=== PATIENT | female | born 1990 ===

== ENCOUNTER 2022-12-05 07:47 | Emergency (ER) | payer OTHER, SELFPAY ==
[2022-12-05 07:55] VITALS: BP 114/72; PULSE 17; RESP 105; TEMP 36.4; O2SAT 96; BMI 24.5
[2022-12-05 08:27] LABS: COVID-19 Test Positive (Negative); IDNOW Serial# BCCEAD1C
[2022-12-05 08:40] LABS: IDNOW Serial# 9DB6401D; Influenza A Negative (Negative); Influenza B2 Negative (Negative)
--- NOTE | 2022-12-05 08:44 | ED_ITS ---
HPI - General Adult General Chief complaint: General Medical Stated complaint: body aches Time Seen by Provider: 12/05/22 08:30 Source: patient and family Mode of arrival: ambulatory Limitations: no limitations History of Present Illness HPI narrative: A 31-year-old female came in for evaluation of generalized body ache, runny nose, subjective fever, sneezing, coughing, is sick with similar symptoms. Patient has no difficulty breathing , or shortness of breath. Review of Systems Review of Systems: All other systems are reviewed and are negative Constitutional: Reports as per HPI and Reports no additional constitutional complaints Eyes: Reports as per HPI and Reports no additional eye complaints Reports system reviewed and no additional complaints, except as documented Cardiovascular: Reports as per HPI and Reports no additional cardiovascular complaints Respiratory: Reports as per HPI and Reports no additional respiratory complaints Gastrointestinal: Reports as per HPI and Reports no additional gastrointestinal complaints Genitourinary: Reports no additional female genitourinary complaints Musculoskeletal: Reports no additional musculoskeletal complaints Skin/Breast: Reports system reviewed and no additional complaints, except as docu Psychiatric: Reports no additional psychiatric complaints Endocrine: Reports no additional endocrine complaints Hematologic/Lymphatic: Reports no additional hematologic/lymphatic complaints Allergic/Immunologic: Reports no additional allergic/immunologic complaints Reports system reviewed and no additional complaints, except as documented and Reports Abnormal speech present [facility] Social History Social History Advance Directives: No Advance Directives Information Provided: Yes Physical Exam ED Vital Signs: Vital Signs - 24 hr 12/05/22 07:55 Temperature 97.5 F Pulse Rate 17 L Respiratory Rate 105 H Blood Pressure 114/72 Pulse Oximetry 96 Oxygen Delivery Method Room Air BMI result Body Mass Index 24.5 Vital signs have been reviewed and appear to be correct. Blood pressure elevated. Heart rate Elevated. Respiratory rate normal. Temperature normal. Oxygen saturation normal. Appearance: Alert. Oriented X3. No acute distress. Head: Normal external exam. Normocephalic. Atraumatic. No Walker signs noted. No raccoon eyes noted Eyes: PERRLA. EOMI. Conjunctiva and sclera normal. Eyelids normal. ENT: TM's Normal. Pharynx normal. Uvula midline. Moist mucous membranes. No trismus noted. No drooling noted. No muffled voice noted. Neck: Normal inspection. Neck supple. FROM. No adenopathy. Thyroid Normal. No me ningeal signs. No neck mass noted. CVS: Normal heart rate and rhythm. Heart sound normal. No murmurs noted. Pulses normal throughout. Respiratory: No respiratory distress. Painless inspiration. Breath sounds normal. No wheezes/rales/rhonchi noted. Chest nontender. No accessory muscle usage noted or decreased air movement noted. Abdomen: Soft and nontender. Bowel sounds normal in all 4 quadrants. No distention noted. No organomegaly noted. No visible injury noted. Back: No CVA tenderness. Full range of motion noted. Skin: Skin warm and dry. Normal skin color. Normal skin turgor. No ra shes/lesions/lacerations noted. Extremities: No lower extremity edema. Extremities exhibit normal range of motion. Extremities nontender. Neuro: Oriented X 3. Cranial nerve exam: II-XII are grossly intact No motor deficit. No sensory deficit. Reflexes normal. Medical Decision Making Differential Diagnosis Differential Diagnoses: The differential diagnosis associated with the presentation includes ( COVID-19, influenza a, influenza B.) Admission/Observation Consideration of admission/observation: Escalation of care including admission/observation considered Lab Data MDM Lab Attestation statement: I reviewed the patient's lab results. Labs: Lab Results 12/05/22 Range/Units 08:07 COVID-19 (GALI) Positive A (Negative) COVID-19 Clin Com See Note Influenza Type A (JC) Negative (Negative) Influenza Type B (JC) Negative (Negative) Influenza A & B Note See Note Discharge Plan Discharge Clinical Impression: COVID-19 virus infection Patient Disposition: Home, Self-Care Instructions: COVID-19 (Coronavirus Disease 2019) (ED) Additional Instructions: frequent hand washing, keep social distancing, wear a face mask at all times, self-quarantine for 1 week. Stand Alone Forms: Work/School Release
== END 2022-12-05 08:52 | disposition home or self-care (01) ==
PROVIDERS: Emergency Provider Emergency Medicine
DX: U07.1 COVID-19 (principal)
CPT/HCPCS: 87502; 87635; 99283; 99284

== ENCOUNTER 2024-01-19 14:39 | Emergency (ER) | payer OTHER, SELFPAY ==
[2024-01-19 14:53] VITALS: BP 119/73; PULSE 79; RESP 18; TEMP 36.5; O2SAT 100; BMI 26.5
[2024-01-19 15:47] LABS: MANUAL DIFF FLAG NO
[2024-01-19 15:48] LABS: Basophils Percent Auto 0.5 % (0-2); Eosinophils Absolute Auto 0.1 X10*3/uL (0.0-0.4); Eosinophils Percent Auto 0.6 % (0-4); Hemoglobin 13.5 g/dl (12.0-16.0); Imm Gran Abs Auto 0.01 X10*3/uL (0.00-0.03); Imm Gran Pct Auto 0.1 % (0.0-0.4); Lymphocytes Absolute Auto 2.1 X10*3/uL (1.2-4.9); Mean Corpuscular HGB Conc 33.8 g/dl (31.0-35.0); Mean Corpuscular Hemoglobin 28.1 pg (27.0-33.0); Mean Corpuscular Volume 83.2 fL (80.0-98.0); Mean Platelet Volume 10.5 fL (9.4-12.3); Monocytes Absolute Auto 0.5 X10*3/uL (0.1-1.2); Monocytes Percent Auto 5.7 % (2-11); Neutrophils Absolute Auto 5.7 x10*3/uL (2.0-8.3); Neutrophils Percent Auto 68.1 % (45-73); Platelet Count 289 X10*3/uL (160-400); Red Blood Count 4.81 X10*6/uL (4.20-5.50); Red Cell Distribution Width 12.8 % (11.0-16.0); White Blood Count 8.4 X10*3/uL (4.8-10.8)
[2024-01-19 15:50] LABS: Appearance Urine Clear; Color Urine Yellow; Glucose Urine UA Negative (Negative); Leukocyte Esterase Urine Negative (Negative); Nitrite Urine Negative (Negative); Specific Gravity - Urine >= 1.030 (1.005-1.025); Urine Blood Negative (Negative); Urine Ketones 80 mg/dL (Negative); Urine Protein Negative (Neg-Trace)
[2024-01-19 15:51] LABS: UPreg QC Valid YES; Urine Pregnancy NEGATIVE (NEGATIVE)
[2024-01-19 16:01] LABS: Alanine Aminotransferase 13 U/L (0-31); Albumin Level 3.8 g/dL (3.5-5.0); Alkaline Phosphatase 101 U/L (39-117); Anion Gap 10 (12-20); Aspartate Amino Transferase 24 U/L (5-31); Bilirubin Total 0.3 mg/dL (0.0-1.0); Blood Urea Nitrogen 12 mg/dL (9-16); Calcium 8.9 mg/dL (8.4-10.2); Carbon Dioxide 25 mmol/L (22-29); Chloride 109 mmol/L (96-108); Creatinine Clr Calc Pharmacy 85.9; Estimated Glomerular Filt Rate > 60; Glucose Random 122 mg/dL (60-115); Potassium 3.7 mmol/L (3.3-5.1); Sodium 140 mmol/L (135-145); Total Protein 6.7 g/dL (6.5-8.0)
--- NOTE | 2024-01-19 17:43 | ED.GENADULT ---
HPI - General Adult General Chief complaint: General Medical Stated complaint: heache, abd pain, dizziness Time Seen by Provider: 01/19/24 17:43 History of Present Illness ED Provider: Bridget SOLANO narrative: The patient is a 33-year-old female who is generally in good health. She has had a tubal ligation in the past. She presents with a headache that started about 3 days ago. It was gradual in onset. The headache is associated with a sense of room spinning dizziness. She also has lower abdominal pain. She says that if she eats she develops nausea. She has had no vomiting. She says she does not have a history of migraine headaches. No fever, sweats, chills. No neck stiffness. No sore throat. No photophobia. Related Data Allergies Allergy/AdvReac Type Severity Reaction Status Date / Time No Known Allergies Allergy Verified 01/19/24 14:56 Review of Systems Review of Systems: Yes all other systems are reviewed and are negative [facility] Social History Social History Advance Directives: No Advance Directives Information Provided: No Do you have a plan to hurt others: No Plan Physical Exam ED Vital Signs: Vital Signs - 24 hr 01/19/24 14:53 01/19/24 19:22 01/19/24 20:38 Temperature 97.7 F 98.0 F 98.0 F Pulse Rate 79 100 100 Respiratory Rate 18 12 12 Blood Pressure 119/73 122/54 L 122/54 L Pulse Oximetry 100 98 98 Oxygen Delivery Method Room Air Room Air Room Air BMI result Body Mass Index 26.5 Const Other: The patient is awake, alert, pleasant, cooperative. She does not appear in acute distress. HENMT Other: Face is symmetrical. Mucous membranes are moist. The posterior pharynx is normal. Tongue is midline. Eyes Other: Pupils are round equal and reactive, extraocular movements are intact, no nystagmus, Neck Other: No cervical adenopathy. Resp Effort & Inspection: normal respiratory effort Auscultation: clear to auscultation bilaterally Cardio Rate: regular rate Rhythm: regular rhythm Heart sounds: S1 normal heart sound present and S2 normal heart sound present GI Other: Abdomen is soft and nontender Skin Other: Skin is dry and unremarkable Neuro Other: The patient is awake and alert with a normal mental status. She does not seem altered or in distress at all. Neck is supple. Eye movements are normal. Pupils are normal. Face is symmetrical. Speech is clear. She moves her extremities normally with normal strength and coordination. She seems neurologically intact. Extrem Other: No peripheral edema Medications Administered Discontinued Medications Generic Name Dose Route Start Last Admin Trade Name Mulugeta PRN Reason Stop Dose Admin Acetaminophen 975 mg 01/19/24 19:27 01/19/24 19:42 Acetaminophen 325 Mg Tablet PO 01/19/24 19:28 975 mg ONCE ONE Administration Diphenhydramine HCl 25 mg 01/19/24 17:48 01/19/24 18:37 Diphenhydramine Hcl 50 Mg/Ml Vial IVPUSH 01/19/24 17:49 25 mg ONCE ONE Administration Sodium Chloride 1,000 mls @ 999 mls/hr 01/19/24 18:00 01/19/24 19:39 Ns IV 01/19/24 19:00 Infused .Q1H1M NBA Infusion Ketorolac Tromethamine 10 mg 01/19/24 17:48 01/19/24 18:37 Ketorolac Tromethamine 15 Mg/Ml Vial IVPUSH 01/19/24 17:49 10 mg ONCE ONE Administration Meclizine HCl 25 mg 01/19/24 19:27 01/19/24 19:42 Meclizine Hcl 25 Mg Tablet PO 01/19/24 19:28 25 mg ONCE ONE Administration Metoclopramide HCl 10 mg 01/19/24 17:48 01/19/24 18:37 Metoclopramide Hcl 10 Mg/2 Ml Vial IVPUSH 01/19/24 17:49 10 mg ONCE ONE Administration Medical Decision Making Medical Decision Making [facility] Narrative: The patient is a very pleasant 33-year-old female presents with a chief complaint of headache and dizziness. She has a secondary complaint of some lower abdominal pain. Her abdominal exam seems extremely benign. Her neurological exam also seems extremely benign. She does not describe a thunderclap headache and she does not seem toxic in any way. Her CBC is unremarkable with a normal white count, normal differential. Normal hemoglobin. Based on her extremely benign abdominal exam I did not think she needed abdominal imaging. Based on her benign physical exam I also did not think she required any imaging for her headache or dizziness. She was treated with IV fluids, metoclopramide, ketorolac, and diphenhydramine. She seemed to feel significantly better. Somewhat strangely she reported that she had some vaginal bleeding while in the emergency department. Her test is negative. Her abdomen remained benign. 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 She apparently gets annual Pap smears. Given her benign exam and benign labs I did not feel there was an indication for a pelvic exam, particularly as she did not describe a significant amount of blood, only slight vaginal bleeding. I think she may be discharged to follow up with her regular doctor and also with her wire fence erector. She should return if worse. Lab Data 01/19/24 15:41 01/19/24 15:41 Labs: Lab Results 01/19/24 01/19/24 Range/Units 15:41 15:43 WBC 8.4 (4.8-10.8) X10*3/uL RBC 4.81 (4.20-5.50) X10*6/uL Hgb 13.5 (12.0-16.0) g/dl Hct 40.0 (37.0-47.0) % MCV 83.2 (80.0-98.0) fL MCH 28.1 (27.0-33.0) pg MCHC 33.8 (31.0-35.0) g/dl RDW 12.8 (11.0-16.0) % Plt Count 289 (160-400) X10*3/uL MPV 10.5 (9.4-12.3) fL Immature Gran % (Auto) 0.1 (0.0-0.4) % Neut % (Auto) 68.1 (45-73) % Lymph % (Auto) 25.0 (20-40) % [place] % (Auto) 5.7 (2-11) % Eos % (Auto) 0.6 (0-4) % Baso % (Auto) 0.5 (0-2) % Lymph # (Auto) 2.1 (1.2-4.9) X10*3/uL [place] # (Auto) 0.5 (0.1-1.2) X10*3/uL Eos # (Auto) 0.1 (0.0-0.4) X10*3/uL Baso # (Auto) 0.0 (0.0-0.2) X10*3/uL Abs Immat Gran (auto) 0.01 (0.00-0.03) X10*3/uL Absolute Neuts (auto) 5.7 (2.0-8.3) x10*3/uL Absolute Nucleated RBC 0.000 (0.0-0.012) X10*3/uL Nucleated RBC % (auto) 0.0 (0.0-0.2) /100WBC Sodium 140 (135-145) mmol/L Potassium 3.7 (3.3-5.1) mmol/L Chloride 109 H (96-108) mmol/L Carbon Dioxide 25 (22-29) mmol/L Anion Gap 10 L (12-20) BUN 12 (9-16) mg/dL Creatinine 0.70 (0.5-1.4) mg/dL Estim Creat Clear Calc 85.9 Estimated GFR > 60 Random Glucose 122 H (60-115) mg/dL Calcium 8.9 (8.4-10.2) mg/dL Total Bilirubin 0.3 (0.0-1.0) mg/dL AST 24 (5-31) U/L ALT 13 (0-31) U/L Alkaline Phosphatase 101 (39-117) U/L Total Protein 6.7 (6.5-8.0) g/dL Albumin 3.8 (3.5-5.0) g/dL Urine Color Yellow Urine Appearance Clear Urine pH 6.0 (5.0-9.0) Ur Specific [place] >= 1.030 H (1.005-1.025) Urine Protein Negative (Neg-Trace) mg/dL Urine Glucose (UA) Negative (Negative) mg/dL Urine Ketones 80 (Negative) mg/dL Urine Blood Negative (Negative) Urine Nitrite Negative (Negative) Ur Leukocyte Esterase Negative (Negative) Urine Test NEGATIVE (NEGATIVE) Discharge Plan Discharge Clinical Impression: Headache, Dizziness, Lower abdominal pain Patient Disposition: Home, Self-Care Additional Instructions: Please rest and take it easy tonight. Your blood testing all seems quite reassuring. Please plan on contacting your wire fence erector at [facility] on Monday if you are having ongoing bleeding. If your symptoms get significantly worse at any time please return to the emergency department. Referrals: [facility] [Provider Group] (Headache, dizziness) Stand Alone Forms: Work/School Release Interventions: ED Discharge Assessment Last Done: 01/19/24 20:38 Discharge Date/Time: 01/19/24 20:38 Print Language: Venezuelan
[2024-01-19] MEDS: Ketorolac Tromethamine 15 MG/ML VIAL 10 MG IVPUSH (18:37)
[2024-01-19] MEDS: diphenhydrAMINE HCL 50 MG/ML VIAL 25 MG IVPUSH (18:37)
[2024-01-19] MEDS: Metoclopramide HCl 10 MG/2 ML VIAL IVPUSH (18:37)
[2024-01-19] MEDS: 0.9 % Sodium Chloride 1,000 ML 999 ML IV (18:38)
[2024-01-19 19:22] VITALS: BP 122/54; PULSE 100; RESP 12; TEMP 36.7; O2SAT 98
[2024-01-19] MEDS: Acetaminophen 325 MG TABLET 975 MG PO (19:42)
[2024-01-19] MEDS: Meclizine HCl 25 MG TABLET PO (19:42)
[2024-01-19 20:38] VITALS: BP 122/54; PULSE 100; RESP 12; TEMP 36.7; O2SAT 98
== END 2024-01-19 20:38 | disposition home or self-care (01) ==
PROVIDERS: Emergency Provider Emergency Medicine
DX: R51.9 Headache, unspecified (principal); R42 Dizziness and giddiness; R10.30 Lower abdominal pain, unspecified
CPT/HCPCS: 36415; 80053; 81003; 81025; 85025; 96361; 96374; 96375; 99284; J1200; J1885; J2765

== ENCOUNTER 2024-02-01 13:37 | Emergency (ER) | payer OTHER, SELFPAY ==
--- NOTE | ~2024-02-01 | CT_ITS ---
EXAMINATION: CT HEAD WITHOUT CONTRAST CLINICAL INFORMATION: Headache COMPARISON: None available. TECHNIQUE: Contiguous axial imaging was performed from the skull base to vertex without intravenous administration of contrast. This CT examination was performed using dose optimization techniques as appropriate, variously including the following: *Automated exposure control *Adjustment of mA and/or kV according to patient size (this includes techniques or standardized protocols for targeted exams where dose is matched to indication/reason for exam; i.e. extremities or head) *Use of iterative reconstruction technique DLP: 534 mGy-cm FINDINGS: There is no evidence of acute intracranial hemorrhage or edematous large vessel territorial infarction. No abnormal mass effect or midline shift is seen. Benítez to white matter differentiation is well preserved. No abnormal extra-axial fluid collections are identified. The ventricles are normal in size. Small densities in bilateral basal ganglia suggesting basal nuclei suggesting mineralization.. The cerebellar tonsils appear appropriately positioned. No acute calvarial fracture.. Paranasal sinuses and mastoid air cells are well-aerated. CT/CT head/brain wo IV con IMPRESSION: No CT evidence of acute intracranial hemorrhage or edematous territorial infarction.. Small densities in bilateral basal nuclei suggesting mineralization.. Electronically signed by: Lanre Lugo MD 02/01/2024 05:59 PM EST
[2024-02-01 13:41] VITALS: BP 123/79; PULSE 116; RESP 20; TEMP 36.4; O2SAT 99; BMI 26.0
--- NOTE | 2024-02-01 13:47 | ED_ITS ---
HPI - General Adult General Chief complaint: Headache Stated complaint: Dizziness, headache Time Seen by Provider: 02/01/24 16:06 Source: patient Limitations: no limitations History of Present Illness ED Provider: Tamara Wilson PA-C HPI narrative: 33-year-old female with hx of asthma, vertigo, presents with a headache x1 day. Associated nausea, dizziness, patient feels as if she is ?spinning in circles?. Pain over left frontal region, is retro-orbital. Has been constant since yesterday, patient has not tried any OTC pain medications to alleviate her discomfort. Denies phonophobia, photophobia or visual changes. No head trauma, the patient does not use blood thinners. Patient denies recent illness or fevers, no neck pain. No preceding heavy lifting injury. Related Data Allergies Allergy/AdvReac Type Severity Reaction Status Date / Time No Known Allergies Allergy Verified 02/01/24 13:46 Review of Systems 2 Review of Systems: Yes all other systems are reviewed and are negative Constitutional: Constitutional: Denies fatigue, Denies fever(s) and Reports headache(s) Eyes: Eyes: Denies change in vision and Denies loss of vision ENT: Reports headache(s) and Denies neck pain Cardiovascular: Cardiovascular: Denies chest pain and Denies dyspnea Respiratory: Respiratory: Denies cough and Denies dyspnea Gastrointestinal: Gastrointestinal: Denies abdominal pain, Reports nausea and Reports vomiting Musculoskeletal: Musculoskeletal: Denies back pain, Denies myalgias, Denies neck pain, Denies numbness and Denies tingling Neurologic: Reports headache(s), Denies focal weakness, Denies loss of vision, Denies numbness and Denies tingling Endocrine: Endocrine: Denies fatigue [facility] Past Medical History Attestation statement: The following information was validated with the patient. Social History Social History Smoked in Last 30 Days: No Use of substances other than those prescribed or required for medical reasons: No Advance Directives: No Advance Directives Information Provided: Yes Do you have a plan to hurt others: No Plan Patient : No Physical Exam ED Vital Signs: Vital Signs - 24 hr 02/01/24 13:41 02/01/24 16:05 Temperature 97.5 F 97.5 F Pulse Rate 116 H 116 H Respiratory Rate 20 20 Blood Pressure 123/79 123/79 Pulse Oximetry 99 99 Oxygen Delivery Method Room Air Room Air BMI result Body Mass Index 26.0 Const Other: Alert, well-appearing Orientation/consciousness: patient oriented x3 Eyes Other: No nystagmus on exam Neck Other: Soft, supple, full range of motion Resp Other: Nonlabored respiration Cardio Other: No peripheral perfusion Skin Other: Warm dry no rash Neuro General: patient oriented x3, no focal motor deficits and CN's II-XI intact bilaterally Extrem Other: Patient is also able to move and turn her head without causing extreme dizziness or nausea Psych Other: Calm cooperative Course Course Course Narrative: RME: 33 yold female presents to the ED for headache, dizziness, nusaea, and vomitting. was told she has migaines. patient denies any chest pain or shortness of breath. . Reevaluation(s) Reevaluation #1: headache resolved, patient eager for discharge, CT negative. Time: 19:44 Medications Administered Discontinued Medications Generic Name Dose Route Start Last Admin Trade Name Kamarq PRN Reason Stop Dose Admin Diphenhydramine HCl 25 mg 02/01/24 16:11 02/01/24 16:38 Diphenhydramine Hcl 50 Mg/Ml Vial IVPUSH 02/01/24 16:12 25 mg ONCE ONE Administration Sodium Chloride 1,000 mls @ 999 mls/hr 02/01/24 16:15 02/01/24 17:39 Ns IV 02/01/24 17:15 Infused .Q1H1M NBA Infusion Acetaminophen 1,000 mg in 100 mls @ 400 mls/hr 02/01/24 16:11 02/01/24 16:57 Ofirmev IV 02/01/24 16:25 Infused ONCE ONE Infusion Ketorolac Tromethamine 15 mg 02/01/24 16:11 02/01/24 16:38 Ketorolac Tromethamine 15 Mg/Ml Vial IVPUSH 02/01/24 16:12 15 mg ONCE ONE Administration Ondansetron HCl 4 mg 02/01/24 13:46 02/01/24 13:49 Ondansetron Odt 4 Mg Tab.Rapdis TRANSLINGU 02/01/24 13:47 4 mg ONCE ONE Administration Prochlorperazine Edisylate 10 mg 02/01/24 16:11 02/01/24 16:38 Prochlorperazine Edisylate 10 Mg/2 Ml Vial IVPUSH 02/01/24 16:12 10 mg ONCE ONE Administration Medical Decision Making Medical Decision Making [facility] Narrative: 33-year-old female with hx of asthma, vertigo, presents with a headache x1 day. Associated nausea, dizziness, patient feels as if she is ?spinning in circles?. Pain over left frontal region, is retro-orbital. Has been constant since yesterday, patient has not tried any OTC pain medications to alleviate her discomfort. Denies phonophobia, photophobia or visual changes. No head trauma, the patient does not use blood thinners. Patient denies recent illness or fevers, no neck pain. No preceding heavy lifting injury. Problem: Vertigo History: Per patient I have considered the following differential diagnoses: Viral syndrome, meningitis, VAD, migraine, intracranial hemorrhage, vertigo Plan: The patient had some features of a migraine, we will give migraine cocktail. She is neurologically intact, I have no suspicion for intracranial hemorrhage, however CT scan was ordered from triage. Thought about meningitis, however she has not had recent illness, she is afebrile, and no meningeal signs on exam. Considered VAD, however she is neurologically intact, and there was no preceding heavy lifting injury. The patient's symptoms are also not vertiginous in nature, she is moving her head and changing positions without having profound dizziness or nausea, and there was no nystagmus on exam. I have independently reviewed the following tests: Labs: No leukocytosis, not anemic, not , viral panel negative CT brain: CT/CT head/brain wo IV con IMPRESSION: No CT evidence of acute intracranial hemorrhage or edematous territorial infarction.. Small densities in bilateral basal nuclei suggesting mineralization.. Electronically signed by: Lanre Lugo MD 02/01/2024 05:59 PM [facility] Lab Data 02/01/24 14:50 02/01/24 14:50 Labs: Lab Results 02/01/24 02/01/24 Range/Units 14:50 18:29 WBC 9.6 (4.8-10.8) X10*3/uL RBC 4.93 (4.20-5.50) X10*6/uL Hgb 13.7 (12.0-16.0) g/dl Hct 40.7 (37.0-47.0) % MCV 82.6 (80.0-98.0) fL MCH 27.8 (27.0-33.0) pg MCHC 33.7 (31.0-35.0) g/dl RDW 13.1 (11.0-16.0) % Plt Count 316 (160-400) X10*3/uL MPV 10.6 (9.4-12.3) fL Immature Gran % (Auto) 0.3 (0.0-0.4) % Neut % (Auto) 76.3 H (45-73) % Lymph % (Auto) 18.3 L (20-40) % [place] % (Auto) 4.4 (2-11) % Eos % (Auto) 0.3 (0-4) % Baso % (Auto) 0.4 (0-2) % Lymph # (Auto) 1.8 (1.2-4.9) X10*3/uL [place] # (Auto) 0.4 (0.1-1.2) X10*3/uL Eos # (Auto) 0.0 (0.0-0.4) X10*3/uL Baso # (Auto) 0.0 (0.0-0.2) X10*3/uL Abs Immat Gran (auto) 0.03 (0.00-0.03) X10*3/uL Absolute Neuts (auto) 7.4 (2.0-8.3) x10*3/uL Absolute Nucleated RBC 0.000 (0.0-0.012) X10*3/uL Nucleated RBC % (auto) 0.0 (0.0-0.2) /100WBC Sodium 138 (135-145) mmol/L Potassium 4.0 (3.3-5.1) mmol/L Chloride 109 H (96-108) mmol/L Carbon Dioxide 23 (22-29) mmol/L Anion Gap 10 L (12-20) BUN 12 (9-16) mg/dL Creatinine 0.68 (0.5-1.4) mg/dL Estim Creat Clear Calc 87.6 Estimated GFR > 60 Random Glucose 96 (60-115) mg/dL Calcium 9.1 (8.4-10.2) mg/dL Total Bilirubin 0.4 (0.0-1.0) mg/dL AST 25 (5-31) U/L ALT 17 (0-31) U/L Alkaline Phosphatase 111 (39-117) U/L Total Protein 7.1 (6.5-8.0) g/dL Albumin 3.9 (3.5-5.0) g/dL Beta HCG, Quant < 2 mIU/mL Urine Color Yellow Urine Appearance Clear Urine pH 6.5 (5.0-9.0) Ur Specific [place] 1.015 (1.005-1.025) Urine Protein Negative (Neg-Trace) mg/dL Urine Glucose (UA) Negative (Negative) mg/dL Urine Ketones 40 (Negative) mg/dL Urine Blood Negative (Negative) Urine Nitrite Negative (Negative) Ur Leukocyte Esterase Moderate (2+) H (Negative) Urine RBC 0-2 (0-2) /HPF Urine WBC 0-5 (0-5) /HPF Ur Squamous Epith Cells 3-5 (0-2) /HPF Urine Bacteria Trace (None Seen) Hyaline Casts 0-2 (0-2) /LPF Urine Test NEGATIVE (NEGATIVE) Influenza Type A (PCR) NEGATIVE (Negative) Influenza Type B (PCR) NEGATIVE (Negative) RSV RNA Qual (PCR) NEGATIVE (Negative) SARS-CoV-2 RNA (RT-PCR) NEGATIVE (Negative) S. pyogenes GrpA JC Negative (Negative) Discharge Plan Discharge Clinical Impression: Headache Patient Disposition: Home, Self-Care Instructions: Acute Headache (ED) Additional Instructions: you were treated for a migraine type headache. The CT scan of your brain was negative, all the labs were normal. If your headaches become frequent, you need to follow up with your primary care provider to discuss the need for a medication to help prevent headaches. Stand Alone Forms: Work/School Release Print Language: Danish
[2024-02-01] MEDS: Ondansetron ODT 4 MG TAB.RAPDIS TRANSLINGU (13:49)
[2024-02-01 14:57] LABS: MANUAL DIFF FLAG NO
[2024-02-01 15:03] LABS: Basophils Percent Auto 0.4 % (0-2); Eosinophils Percent Auto 0.3 % (0-4); Hematocrit 40.7 % (37.0-47.0); Hemoglobin 13.7 g/dl (12.0-16.0); Imm Gran Abs Auto 0.03 X10*3/uL (0.00-0.03); Imm Gran Pct Auto 0.3 % (0.0-0.4); Lymphocytes Absolute Auto 1.8 X10*3/uL (1.2-4.9); Lymphocytes Percent Auto 18.3 % (20-40); Mean Corpuscular HGB Conc 33.7 g/dl (31.0-35.0); Mean Corpuscular Hemoglobin 27.8 pg (27.0-33.0); Mean Corpuscular Volume 82.6 fL (80.0-98.0); Mean Platelet Volume 10.6 fL (9.4-12.3); Monocytes Absolute Auto 0.4 X10*3/uL (0.1-1.2); Monocytes Percent Auto 4.4 % (2-11); Neutrophils Absolute Auto 7.4 x10*3/uL (2.0-8.3); Neutrophils Percent Auto 76.3 % (45-73); Platelet Count 316 X10*3/uL (160-400); Red Blood Count 4.93 X10*6/uL (4.20-5.50); Red Cell Distribution Width 13.1 % (11.0-16.0); White Blood Count 9.6 X10*3/uL (4.8-10.8)
[2024-02-01 15:20] LABS: IDNOW Serial# 08D9AD1C; Strep A Nucleic Acid Negative (Negative)
[2024-02-01 15:21] LABS: Alanine Aminotransferase 17 U/L (0-31); Albumin Level 3.9 g/dL (3.5-5.0); Alkaline Phosphatase 111 U/L (39-117); Anion Gap 10 (12-20); Aspartate Amino Transferase 25 U/L (5-31); Bilirubin Total 0.4 mg/dL (0.0-1.0); Blood Urea Nitrogen 12 mg/dL (9-16); Calcium 9.1 mg/dL (8.4-10.2); Carbon Dioxide 23 mmol/L (22-29); Chloride 109 mmol/L (96-108); Creatinine Clr Calc Pharmacy 87.6; Estimated Glomerular Filt Rate > 60; Glucose Random 96 mg/dL (60-115); Sodium 138 mmol/L (135-145); Total Protein 7.1 g/dL (6.5-8.0)
[2024-02-01 15:23] LABS: HCG Quantitative < 2 mIU/mL
[2024-02-01 15:40] LABS: Influenza A PCR NEGATIVE (Negative); Influenza B PCR NEGATIVE (Negative); Resp Syncy Virus RNA Qual PCR NEGATIVE (Negative); SARS COV2 PCR INHOUSE NEGATIVE (Negative)
[2024-02-01 16:05] VITALS: BP 123/79; PULSE 116; RESP 20; TEMP 36.4; O2SAT 99
--- NOTE | 2024-02-01 16:21 | PC.NURSE ---
Pt comes to ED today with complaints of severe GUIDO x3 weeks gardually getting worse. Pt reports 10/10 pain to L side of head with dizziness, unsteady gait, and feels like the room is spinning. (+) n/v with diarrhea x1 today. A&Ox3, VSS, afebrile. Skin is warm and dry Breaths and speech are even and unlabored.
[2024-02-01] MEDS: 0.9 % Sodium Chloride 1,000 ML 999 ML IV (16:38)
[2024-02-01] MEDS: Prochlorperazine Edisylate 10 MG/2 ML VIAL IVPUSH (16:38)
[2024-02-01] MEDS: Ketorolac Tromethamine 15 MG/ML VIAL IVPUSH (16:38)
[2024-02-01] MEDS: diphenhydrAMINE HCL 50 MG/ML VIAL 25 MG IVPUSH (16:38)
[2024-02-01] MEDS: Acetaminophen 1,000 MG/100 ML PIGGYBACK 400 MG IV (16:42)
[2024-02-01 18:40] LABS: Appearance Urine Clear; Color Urine Yellow; Glucose Urine UA Negative (Negative); Leukocyte Esterase Urine Moderate (2+) (Negative); Nitrite Urine Negative (Negative); PH 6.5 (5.0-9.0); Specific Gravity - Urine 1.015 (1.005-1.025); UMIC TRIGGER UACC YES; UPreg QC Valid YES; Urine Blood Negative (Negative); Urine Ketones 40 mg/dL (Negative); Urine Pregnancy NEGATIVE (NEGATIVE); Urine Protein Negative (Neg-Trace)
[2024-02-01 18:50] LABS: Bacteria Urine Trace (None Seen); Hyaline Casts Urine 0-2 /LPF (0-2); RBC Urine 0-2 /HPF (0-2); UACC Culture Trigger YES; WBC Urine 0-5 /HPF (0-5)
--- NOTE | 2024-02-01 18:58 | PC.NURSE ---
received report from Elle ZUÑIGA, assume care of pt at this time
[2024-02-01 19:56] VITALS: BP 111/65; PULSE 100; RESP 16; TEMP 37.1; O2SAT 99
== END 2024-02-01 19:57 | disposition home or self-care (01) ==
PROVIDERS: Physician Assistant; Emergency Provider Internal Medicine
DX: R51.9 Headache, unspecified (principal); R42 Dizziness and giddiness; R11.2 Nausea with vomiting, unspecified; Z03.818 Encounter for observation for suspected exposure to other biological agents ruled out
CPT/HCPCS: 0241U; 70450; 80053; 81001; 81025; 84702; 85025; 87086; 87651; 96361; 96374; 96375; 99284; 99285; J0131; J0737; J1200; J1885